=== PATIENT | male | born 1980 | race Two or more races ===

== ENCOUNTER 2020-08-05 03:18 | Emergency (ER) | payer MEDICARE, MEDICAID ==
[~2020-08-05] VITALS: Ht 190.5 cm; Wt 77.1 kg
[2020-08-05 03:33] VITALS: BP 123/87
[2020-08-05] MEDS ORDERED: methylPREDNISolone SOD SUCC 125 MG/2 ML VL IM ONE (05:45)
[2020-08-05] MEDS ORDERED: diphenhdrAMINE HCL 25 MG CAP PO ONE (05:45)
[2020-08-05] MEDS ORDERED: cefTRIAXone SOD 1,000 MG VL IM ONE (06:30)
== END 2020-08-05 06:31 | disposition home or self-care (01) ==
LOC: ER 03:22
DX: Z20.2 Contact with and (suspected) exposure to infections with a predominantly sexual mode of transmission (principal); F17.210 Nicotine dependence, cigarettes, uncomplicated
CPT/HCPCS: 96372; 99283; J0696; J2930